=== PATIENT | male | born 1955 | race Hispanic/Latino ===

== ENCOUNTER 2020-06-19 10:53 | Emergency (ER) | payer OTHER ==
--- OUTSIDE RECORDS SUMMARY | 2020-06-19 11:06 | XMS REPORT | Continuity of Care Document ---
:1955 Author Organization 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 Family History Family Member Diagnosis Comments Start Date Stop Date Source Mother Family history of Type [facility] [place] 2 diabetes mellitus Physi cians with other circulatory complication Mother Family history of [facility] [place] diabetes mellitus [facility]ici ans Medications Ordered Filled Start Stop Current Ordering Indication Dosage Frequency Signature Comments Components Source Medication Medication Date Date Medication? Clinician (SIG) Name Name Finasteride Finasteride Yes 1 QD TAKE 1 Univers 5 MG Oral 5 MG Oral TABLET ity of Tablet Tablet DAILY. [place] [facility] Vital Signs Vital Name Observation Time Observation Value Comments Source Systolic blood 2020-02-14 115 mm[Hg] Location: Replaced by [facility] 13:08:00 Position: [place] [facility] Sitting Diastolic blood 2020-02-14 70 mm[Hg] Location: Replaced by [facility] 13:08:00 Position: [place] [facility] Sitting Body height 2020-02-14 69 [in_us] [facility] 13:08:00 [place] [facility] Weight 2020-02-14 190 [lb_av] [facility] 13:08:00 [place] [facility] Body mass index 2020-02-14 28.06 kg/m2 [place] o f (BMI) [Ratio] 13:08:00 [place] [facility] Body temperature 2020-02-14 97.6 [degF] [facility] 13:08:00 [place] [facility] Heart Rate 2020-02-14 70 /min [facility] 13:08:00 [place] [facility] O2 SAT 2020-02-14 99 % [facility] 13:08:00 [place] [facility] Systolic blood 2019-12-22 130 mm[Hg] Location: E; [facility] 09:23:00 Position: [place] Physician s Sitting Diastolic blood 2019-12-22 83 mm[Hg] Location: LLE; [facility] 09:23:00 Position: [place] [facility]ician s Sitting Body height 2019-12-22 69 [in_us] [facility] 09:23:00 [place] [facility] Weight 2019-12-22 195 [lb_av] [facility] 09:23:00 [place] [facility] Body mass index 2019-12-22 28.8 kg/m2 [place] [facility] f (BMI) [Ratio] 09:23:00 [place] [facility] Body temperature 2019-12-22 97.1 [degF] Method: [facility] 09:23:00 Temporal [place] [facility] Heart Rate 2019-12-22 60 /min [facility] 09:23:00 [place] [facility] Respiratory rate 2019-12-22 18 /min Quality: Normal [facility] 09:23:00 [place] [facility] O2 SAT 2019-12-22 98 % Source: [facility] 09:23:00 [place] [facility] Procedures Procedure Date / Time Performed Performing Clinician Steffanie e MRA Brain with and 2020-01-15 00:00:00 [facility] y [facility] without contrast Physicians [id number] MRI Brain w/wo 2019-12-22 00:00:00 [facility] contrast [id number] Physicians MRA Brain with 2019-12-22 00:00:00 [place] [facility] contrast [id number] Physicians MRA Neck [id number] 2019-12-22 00:00:00 [facility] o [facility] Physicians Plan of Care Planned Activity Planned Date Details Comments Source Future Appointment 2020-08-12 Nahun AMADOR [facility] 13:00:00 WEDNESDAY, Physicians Encounters Start End Encounter Admission Attending Care Care Encounter Source Date/Time Date/Time Type Type Clinicians Facility Department ID 2020-06-08 2020-06-08 Laboratory Lab, [facility] [id number] 17:50:36 18:10:36 Only Fam Pob I Health [id number] [place] [id number] Professio [id number] nal [address] 2020-04-15 2020-04-15 Laboratory Lab, [facility] [id number] 08:51:28 09:11:28 Only Fam Pob I Health [id number] [place] [id number] Professio [phone] nal 0[address] 2020-02-14 2020-02-14 Appointmen WEDNESDAYSUBHASH Neurology [id number] [facility] 13:00:00 13:00:00 t; WEDNESDAYMARJORIE [place] i ty of KIMBERLY, M.D. [facility] Physici ans 2019-12-22 2019-12-22 Appointmen SUBHASH PAINTING Neurology [id number] [facility] 09:30:00 09:30:00 t; DELFINO PAINTING [place] ity of SHAILA, M.D. [facility] Physici ans Results Test Test Test Results Result Source Description Time Comments Comments MR Brain w/wo 2020-01- EXAM: MRI BRAIN AND IAC [facility] and 03 WITH AND WITHOUT [place] IAC Complete 14:06:00 CONTRASTEXAM: MRA BRAIN Physicians [id number] WITH AND WITHOUT CONTRASTEXAM: MRA NECK WITHOUT CONTRASTDATE: 01/15/2020 13:41 CDTINDICATION: R42 DIZZINESS G50 TRIGEMINAL NEURALGIAADDITIONAL INFORMATION: 64-year-old male who has been experiencing discomfortand pain on the left side of their forehead and face for 2 months.COMPARISON: None.TECHNIQUE:* Multiplanar, multisequence MRI of the brain and internal auditory canalswith and without intravenous contrast.* Three-dimensional time of flight brain MR angiography of the brain isperformed within without contrast, and MIP reformatted images are presented inmultiple 3-D rotational projections.* Two-dimensional time of flight neck MR angiography of extracranial arterialsystem was performed and reformatted images are presented in 3-D maximumintensity rotational projections. 3-D hosv-su-npobog MR angiography centered atthe carotid bifurcations was included.* IV contrast: 20 mL Dotarem.FINDINGS:MRI brain and IACs:The trigeminal nerves appear symmetric and are normal in size and signalintensity. There is no pathologic enhancement of the trigeminal nerves or othercranial nerves on postcontrast imaging. No leptomeningeal enhancement isidentified. There is no evidence of abutment of either trigeminal nerve by avascular structure or other lesion. The mitali and remainder of the brainstemdemonstrate normal signal intensity.There is no restricted diffusion identified to indicate acute infarction orrecent ischemia. No pathologic extra-axial fluid collection is identified.There is no intraparenchymal susceptibility or signal changes to indicate thepresence of acute intracranial hemorrhage. There is no evidence of acutehydrocephalus. There is no vasogenic edema, midline shift, or evidence ofherniation. The basal cisterns and sulci are preserved. The major intracranialvascular flow voids are preserved, consistent with patency.A nonenhancing cystic structure in the posterior fossa which follows the CSFsignal intensity on all sequences, suppresses completely on T2 FLAIR imaging,and does not demonstrate any restricted diffusion is consistent with anarachnoid cyst. The midline left retrocerebellar component measures 2 x 1.6 x3.9 cm (AP by transverse by craniocaudal). There is extension into the regionsoverlying the bilateral cerebellar hemispheres, measuring up to 0.5 cm inthickness.There are scattered hyperintense foci seen within the supratentorialsubcortical and periventricular white matter on T2 FLAIR imaging which arenonspecific but most commonly associated with chronic microangiopathic changes.A mucus retention cyst is seen within the floor of the right maxillary sinus.Mucosal thickening is seen in the bilateral anterior ethmoid air cells.MRA brain:There is no evidence of vascular abutment or compression of the trigeminalnerves bilaterally. There is no evidence of flow-limiting stenosis, occlusion,aneurysmal dilatation, or vasculitis within the intracranial anterior posteriorcirculation.MRA neck:There is no evidence of flow-limiting stenosis, occlusion, aneurysmaldilatation, or vascular injury within the bilateral carotid or vertebralarteries.IMPRESSIO N:1. Normal, symmetric size and signal intensity of the bilateral trigeminalnerves without pathologic enhancement. No evidence of left trigeminal abutmentor compression by an adjacent vascular structure or other lesion. Of note, theentire course of the trigeminal nerves is not imaged on dedicated temporal boneimaging, and extracranial portions cannot be evaluated. MRI of the face can beconsidered.2. Scattered T2/FLAIR hyperintense foci seen within the supratentorial whitematter are nonspecific but commonly associated with chronic microangiopathicchanges.3. Normal MRA of the neck.--This report was dictated by a Clinical Case Manager/Fellow/Physician Automotive Glass Installer. Ihave personallyreviewed the images as well as the interpretation and agree with the findings.Read by: Audie Carrington MD Resident/Fellow/PhysicianAs sistant: Audie Carrington MDDictated Date/time: 01/16/20 08:23Electronically Signed by: Meghan Gary MD 01/15/2015:08FINAL REPORT MRA Brain with 2020-01- EXAM: MRI BRAIN AND IAC [facility] and without 03 WITH AND WITHOUT [place] contrast [id number] 13:55:00 CONTRASTEXAM: MRA BRAIN Physicians WITH AND WITHOUT CONTRASTEXAM: MRA NECK WITHOUT CONTRASTDATE: 01/15/2020 13:41 CDTINDICATION: R42 DIZZINESS G50 TRIGEMINAL NEURALGIAADDITIONAL INFORMATION: 64-year-old male who has been experiencing discomfortand pain on the left side of their forehead and face for 2 months.COMPARISON: None.TECHNIQUE:* Multiplanar, multisequence MRI of the brain and internal auditory canalswith and without intravenous contrast.* Three-dimensional time of flight brain MR angiography of the brain isperformed within without contrast, and MIP reformatted images are presented inmultiple 3-D rotational projections.* Two-dimensional time of flight neck MR angiography of extracranial arterialsystem was performed and reformatted images are presented in 3-D maximumintensity rotational projections. 3-D rdyz-cl-pjzblw MR angiography centered atthe carotid bifurcations was included.* IV contrast: 20 mL Dotarem.FINDINGS:MRI brain and IACs:The trigeminal nerves appear symmetric and are normal in size and signalintensity. There is no pathologic enhancement of the trigeminal nerves or othercranial nerves on postcontrast imaging. No leptomeningeal enhancement isidentified. There is no evidence of abutment of either trigeminal nerve by avascular structure or other lesion. The mitali and remainder of the brainstemdemonstrate normal signal intensity.There is no restricted diffusion identified to indicate acute infarction orrecent ischemia. No pathologic extra-axial fluid collection is identified.There is no intraparenchymal susceptibility or signal changes to indicate thepresence of acute intracranial hemorrhage. There is no evidence of acutehydrocephalus. There is no vasogenic edema, midline shift, or evidence ofherniation. The basal cisterns and sulci are preserved. The major intracranialvascular flow voids are preserved, consistent with patency.A nonenhancing cystic structure in the posterior fossa which follows the CSFsignal intensity on all sequences, suppresses completely on T2 FLAIR imaging,and does not demonstrate any restricted diffusion is consistent with anarachnoid cyst. The midline left retrocerebellar component measures 2 x 1.6 x3.9 cm (AP by transverse by craniocaudal). There is extension into the regionsoverlying the bilateral cerebellar hemispheres, measuring up to 0.5 cm inthickness.There are scattered hyperintense foci seen within the supratentorialsubcortical and periventricular white matter on T2 FLAIR imaging which arenonspecific but most commonly associated with chronic microangiopathic changes.A mucus retention cyst is seen within the floor of the right maxillary sinus.Mucosal thickening is seen in the bilateral anterior ethmoid air cells.MRA brain:There is no evidence of vascular abutment or compression of the trigeminalnerves bilaterally. There is no evidence of flow-limiting stenosis, occlusion,aneurysmal dilatation, or vasculitis within the intracranial anterior posteriorcirculation.MRA neck:There is no evidence of flow-limiting stenosis, occlusion, aneurysmaldilatation, or vascular injury within the bilateral carotid or vertebralarteries.IMPRESSIO N:1. Normal, symmetric size and signal intensity of the bilateral trigeminalnerves without pathologic enhancement. No evidence of left trigeminal abutmentor compression by an adjacent vascular structure or other lesion. Of note, theentire course of the trigeminal nerves is not imaged on dedicated temporal boneimaging, and extracranial portions cannot be evaluated. MRI of the face can beconsidered.2. Scattered T2/FLAIR hyperintense foci seen within the supratentorial whitematter are nonspecific but commonly associated with chronic microangiopathicchanges.3. Normal MRA of the neck.--This report was dictated by a Clinical Case Manager/Fellow/Physician Automotive Glass Installer. Caty personallyreviewed the images as well as the interpretation and agree with the findings.Read by: Audie Carrington MD Resident/Fellow/PhysicianAs sistant: Audie Carrington MDDictated Date/time: 01/16/20 08:23Electronically Signed by: Meghan Gary MD 01/15/2015:08FINAL REPORT MRA Neck 2020-01- EXAM: MRI BRAIN AND IAC [facility] without 03 WITH AND WITHOUT [place] contrast [id number] 13:42:00 CONTRASTEXAM: MRA BRAIN Physicians WITH AND WITHOUT CONTRASTEXAM: MRA NECK WITHOUT CONTRASTDATE: 01/15/2020 13:41 CDTINDICATION: R42 DIZZINESS G50 TRIGEMINAL NEURALGIAADDITIONAL INFORMATION: 64-year-old male who has been experiencing discomfortand pain on the left side of their forehead and face for 2 months.COMPARISON: None.TECHNIQUE:* Multiplanar, multisequence MRI of the brain and internal auditory canalswith and without intravenous contrast.* Three-dimensional time of flight brain MR angiography of the brain isperformed within without contrast, and MIP reformatted images are presented inmultiple 3-D rotational projections.* Two-dimensional time of flight neck MR angiography of extracranial arterialsystem was performed and reformatted images are presented in 3-D maximumintensity rotational projections. 3-D hmkl-zv-ciwhic MR angiography centered atthe carotid bifurcations was included.* IV contrast: 20 mL Dotarem.FINDINGS:MRI brain and IACs:The trigeminal nerves appear symmetric and are normal in size and signalintensity. There is no pathologic enhancement of the trigeminal nerves or othercranial nerves on postcontrast imaging. No leptomeningeal enhancement isidentified. There is no evidence of abutment of either trigeminal nerve by avascular structure or other lesion. The mitali and remainder of the brainstemdemonstrate normal signal intensity.There is no restricted diffusion identified to indicate acute infarction orrecent ischemia. No pathologic extra-axial fluid collection is identified.There is no intraparenchymal susceptibility or signal changes to indicate thepresence of acute intracranial hemorrhage. There is no evidence of acutehydrocephalus. There is no vasogenic edema, midline shift, or evidence ofherniation. The basal cisterns and sulci are preserved. The major intracranialvascular flow voids are preserved, consistent with patency.A nonenhancing cystic structure in the posterior fossa which follows the CSFsignal intensity on all sequences, suppresses completely on T2 FLAIR imaging,and does not demonstrate any restricted diffusion is consistent with anarachnoid cyst. The midline left retrocerebellar component measures 2 x 1.6 x3.9 cm (AP by transverse by craniocaudal). There is extension into the regionsoverlying the bilateral cerebellar hemispheres, measuring up to 0.5 cm inthickness.There are scattered hyperintense foci seen within the supratentorialsubcortical and periventricular white matter on T2 FLAIR imaging which arenonspecific but most commonly associated with chronic microangiopathic changes.A mucus retention cyst is seen within the floor of the right maxillary sinus.Mucosal thickening is seen in the bilateral anterior ethmoid air cells.MRA brain:There is no evidence of vascular abutment or compression of the trigeminalnerves bilaterally. There is no evidence of flow-limiting stenosis, occlusion,aneurysmal dilatation, or vasculitis within the intracranial anterior posteriorcirculation.MRA neck:There is no evidence of flow-limiting stenosis, occlusion, aneurysmaldilatation, or vascular injury within the bilateral carotid or vertebralarteries.IMPRESSIO N:1. Normal, symmetric size and signal intensity of the bilateral trigeminalnerves without pathologic enhancement. No evidence of left trigeminal abutmentor compression by an adjacent vascular structure or other lesion. Of note, theentire course of the trigeminal nerves is not imaged on dedicated temporal boneimaging, and extracranial portions cannot be evaluated. MRI of the face can beconsidered.2. Scattered T2/FLAIR hyperintense foci seen within the supratentorial whitematter are nonspecific but commonly associated with chronic microangiopathicchanges.3. Normal MRA of the neck.--This report was dictated by a Clinical Case Manager/Fellow/Physician Automotive Glass Installer. Ihave personallyreviewed the images as well as the interpretation and agree with the findings.Read by: Audie Carrington MD Resident/Fellow/PhysicianAs sistant: Audie Carrington MDDictated Date/time: 01/16/20 08:23Electronically Signed by: Meghan Gary MD 01/15/2015:08FINAL REPORT
--- OUTSIDE RECORDS SUMMARY | 2020-06-19 11:06 | XMS REPORT | Summary of Care ---
:1955 Author Organization [facility] Address [address] [place] [id number] Care Team Providers Name Role Phone Shaun Weinstein Primary Care Provider Reason for Visit Reason Comments LAB covid Encounter Details Date Type Department Care Team Description 06/08/2020 Laboratory Only [facility] Ghislaine Blandon, CLOTH TEARER [address] [place] [address] Exposure to Medicine - [facility], Adc Fam Pob I SARS-associated [address] [facility] coronaviru s ([address] Dx) [place] [address] Allergies Not on Filedocumented as of this encounter (statuses as of 06/08/2020) Medications Not on filedocumented as of this encounter (statuses as of 06/08/2020) Active Problems Not on filedocumented as of this encounter (statuses as of 06/08/2020) Social History Tobacco Use Types Packs/Day Years Used Date Never Assessed Sex Assigned at Date Recorded Not on file COVID-19 Exposure Response Date Recorded In the last month, have you been in contact with No / Unsure 06/08/2020 5:52 PM [facility] someone who was confirmed or suspected to have Coronavirus / COVID-19? documented as of this encounter Last Filed Vital Signs Not on filedocumented in this encounter Nursing Notes Toma Dennis RN - 06/08/2020 6:00 PM CSTNishant Samaniego is a 65 year old male here for COVID Screening with a Nasopharyngeal Swab All droplet and contact precautions taken with appropriate PPE worn while interacting with patient. ? Goggles ? N95 Mask ? Gloves ? Gown RR 17 Pulse Ox 97% Patient educated on plan of care for visit, swabbing technique, risks and benefits of test and length of time to receive results. Verbal consent obtained to perform test. CDC Fact Sheet for Patients nCoV Diagnostic Panel dated 08/27/2019 and Factsheet What to Do if Sick with COVID 19 08/07/19 provided. Patient swabbed per appropriate nasopharyngeal technique, and patient tolerated well. Patient was discharged from the testing clinic in stable condition. Toma Dennis RN 06/08/2020 5:53 PM documented in this encounter Plan of Treatment Name Type Priority Associated Diagnoses Order S chedule COVID-19 (MOLECULAR LAB Routine Exposure to Expected : 06/08/2020, TESTING SARS-associated Expires: 021 NUCLEIC ACID coronavirus AMPLIFICATION) documented as of this encounter Results Not on filedocumented in this encounter Visit Diagnoses Diagnosis Exposure to SARS-associated coronavirus - Primary documented in this encounter Additional Health Concerns Infection Onset Date Last Indicated Resolved Time COVID-19 Rule Out 06/08/2020 06/08/2020 documented as of this encounter Insurance Payer Benefit Plan Subscriber ID Effective Phone Address Typ e / Group Dates [employer]ET[employer] - AET[employer] [id number] 2019-[address] Medic are Adv [place]NAGED MEDICARE ADV [place] [id number] [place] [address] documented as of this encounter
--- OUTSIDE RECORDS SUMMARY | 2020-06-19 11:06 | XMS REPORT | Summary of Care ---
:1955 Author Organization [facility] Address [address] [place] [id number] Care Team Providers Name Role Phone Shaun Weinstein Primary Care Provider Reason for Visit Reason Comments LAB Encounter Details Date Type Department Care Team Description 04/15/[address] [facility] Family Fawad Hoyos, FRONT OFFICE DIRECTOR [address] [place] [id number] Contact with or Medicine - [facility], Ad[facility] Fam Pob I exposure to viral [address] [place] [address] disease (P rimary Dx) [place] [address] Allergies Not on Filedocumented as of this encounter (statuses as of 04/15/2020) Medications Not on filedocumented as of this encounter (statuses as of 04/15/2020) Active Problems Not on filedocumented as of this encounter (statuses as of 04/15/2020) Social History Tobacco Use Types Packs/Day Years Used Date Never Assessed Sex Assigned at Date Recorded Not on file documented as of this encounter Last Filed Vital Signs Vital Sign Reading Time Taken Comments Blood Pressure - - Pulse 68 04/15/2020 7:00 AM RESOURCE PARAPROFESSIONAL Temperature - - Respiratory Rate 16 04/15/2020 7:00 AM RESOURCE PARAPROFESSIONAL Oxygen Saturation 97% 04/15/2020 7:00 AM RESOURCE PARAPROFESSIONAL Inhaled Oxygen Concentration - - Weight - - Height - - Body Mass Index - - documented in this encounter Nursing Notes Daniela Jackman MA - 04/15/2020 8:40 AM CSTNishant Samaniego is a 65 year old male here for a Rule Out Covid-19 Nasopharyngeal Swab. Patient educated on plan of care for visit, swabbing technique, risks and benefits of test and length of time to receive results. Verbal consent obtained to perform test. CDC Fact Sheet for Patients provided to patient. All droplet and contact precautions taken with appropriate PPE worn while interacting with patient. - Goggles - N95 Mask - Gloves - Gown RR=16 % O2 Sat=97 Patient swabbed using appropriate nasopharyngeal technique, and patient tolerated well. Patient was discharged in stable condition. Daniela Jackman MA 04/15/2020 8:57 AM URCE PARAPROFESSIONAL documented in this encounter Plan of Treatment Name Type Priority Associated Diagnoses Order S chedule COVID-19 ([facility] Routine Contact with or exposure Expected: 04/15/2020, TESTING) to viral disease Expires: Health Maintenance Due Date Last Done Comments HEPATITIS C (HCV) SCREEN 1955 Depression Screening 1966 DTaP,Tdap,and Td Vaccines (1 - Tdap) 1973 COLON CANCER SCREENING ANNUAL FIT/FOBT 02/23/2004 COLON CANCER SCREENING FIT DNA EVERY 3 YEARS 02/23/2004 COLON CANCER SCREENING SIGMOIDOSCOPY EVERY 5 YEARS 02/23/2004 COLONOSCOPY 02/23/2004 Colorectal Cancer Screening 02/23/2004 Zoster Recombinant Vaccine (SHINGRIX) (1 of 2) 02/23/2004 Medicare Wellness Visit 2019 PNEUMOCOCCAL VACCINES 65+ (1 of 1 - PPSV23) 2019 INFLUENZA VACCINE (#1) 2020 documented as of this encounter Results Not on filedocumented in this encounter Visit Diagnoses Diagnosis Contact with or exposure to viral diseas e - Primary Contact with or exposure to other viral diseases documented in this encounter Additional Health Concerns Infection Onset Date Last Indicated Resolved Time COVID-19 Rule Out 04/15/2020 04/15/2020 documented as of this encounter Insurance Payer Benefit Plan Subscriber ID Effective Phone Address Typ e / Group Dates AETNA - AETNA [id number] 2019-Prese P O BOX Medic are Adv MANAGED MEDICARE ADV nt [id number] [place] [address] documented as of this encounter
[2020-06-19 14:19] LABS: Absolute Lymphocytes (CBC) 0.3 K/uL (0.7-4.9); Basophils % 0.1 % (0-1.3); Hematocrit 42.4 % (39.6-49.0); Lymphocytes % 10.4 % (15.3-44.8); MPV 7.5 fL (7.6-11.3); RBC Red Blood Cell Count 5.38 M/uL (4.33-5.43)
[2020-06-19 14:24] LABS: Protime INR 1.36
[2020-06-19 14:39] LABS: ALT/SGPT 127 U/L (12-78); AST/SGOT 92 U/L (15-37); Albumin 3.1 g/dL (3.4-5.0); Alkaline Phosphatase 112 U/L (45-117); BUN Blood Urea Nitrogen 19 mg/dL (7-18); Bicarbonate 26 mmol/L (21-32); Bilirubin Direct 0.1 mg/dL (0-0.2); Bilirubin Total 0.5 mg/dL (0.2-1.0); Glucose Level 234 mg/dL (74-106); Magnesium 2.4 mg/dL (1.8-2.4); NT PRO-BNP 111 pg/mL (<125); Potassium 4.2 mmol/L (3.5-5.1); Protein, Total 7.6 g/dL (6.4-8.2); Sodium Level 134 mmol/L (136-145); Troponin (Emerg Dept Use Only) < 0.02 ng/mL (0.0-0.045)
--- NOTE | 2020-06-19 14:57 | RAD REPORT ---
EXAM DESCRIPTION: CT - Chest For Pe Angio - 06/19/2020 2:18 pm CLINICAL HISTORY: Chest pain. SOB COMPARISON: No comparisons TECHNIQUE: CT angiogram of the pulmonary arteries was performed with MIP. All CT scans are performed using dose optimization technique as appropriate and may include automated exposure control or mA/KV adjustment according to patient size. FINDINGS: No evidence of pulmonary thromboembolism. No acute aortic finding demonstrated. Moderate ground-glass opacity seen in the periphery of both lung ramirez greatest in the bases compati ble with viral bronchitis. No significant pericardial or pleural fluid. No concerning bony finding. IMPRESSION: No evidence of pulmonary thromboembolism. Moderate ground-glass opacities bilaterally compatible with COVID-19.
--- NOTE | 2020-06-19 15:10 | RAD REPORT ---
EXAM DESCRIPTION: RAD - Chest Single View - 06/19/2020 2:15 pm CLINICAL HISTORY: SOB Chest pain. COMPARISON: No comparisons FINDINGS: Portable technique limits examination quality. Mild interstitial prominence bilaterally suggests viral pneumonitis/ bronchitis. The heart is normal in size. No displaced fractures.
--- NOTE | 2020-06-19 15:21 | ER ---
Nurse's Notes [facility] Name: Nishant Samaniego Age: 65 yrs Sex: Male : 1955 Arrival Date: 06/19/2020 Time: 10:56 Bed 19 Private MD: Diagnosis: Coronavirus infection, unspecified;Pneumonia due to other specified infectious organisms Presentation: 06/19 11:04 Chief complaint: Patient states: back was hurting real bad yesterday, Dr. Js schulz5 prescribed some medications, feels slightly better today, Pt has "blood clots in lungs", back pain has subsided but Dr. Weinstein wanted to get a CT done today. Coronavirus screen: Client denies travel out of the [place] in the last 14 days. fever, Client presents with at least one sign or symptom that may indicate coronavirus-19. Standard/surgical mask placed on the client. Coronavirus screen: headache. Ebola Screen: Patient negative for fever greater than or equal to 101.5 degrees Fahrenheit, and additional compatible Ebola Virus Disease symptoms Patient denies exposure to infectious person. Patient denies travel to an Ebola-affected area in the 21 days before illness onset. No symptoms or risks identified at this time. Initial Sepsis Screen: Does the patient meet any 2 criteria? RR > 20 per min. No. Patient's initial sepsis screen is negative. Does the patient have a suspected source of infection? No. Patient's initial sepsis screen is negative. Risk Assessment: Do you want to hurt yourself or someone else? Patient reports no desire to harm self or others. Onset of symptoms was June 18, 2020. 11:04 Method Of Arrival: Ambulatory dm5 11:04 Acuity: JOSEFINA 3 dm5 Historical: - Allergies: 11:07 No Known Allergies; dm5 - Home Meds: 15:27 Dexamethasone Oral [Active]; Zithromax Z-Asim Oral [Active]; vg1 15:27 Pepcid Oral [Active]; Xarelto oral oral [Active]; vg1 Screenin:05 Abuse screen: Denies threats or abuse. Nutritional screening: No deficits noted. vg1 Tuberculosis screening: No symptoms or risk factors identified. Fall Risk None identified. Assessment: 13:04 General: Appears in no apparent distress. comfortable, Behavior is calm, cooperative. vg1 Pain: Complains of pain in left scapular area Pain currently is 2 out of 10 on a pain scale. Neuro: Level of Consciousness is awake, alert, obeys commands, Oriented to person, place, time, situation. Cardiovascular: Patient's skin is warm and dry. Respiratory: Airway is patent Respiratory effort is even, unlabored, Respiratory pattern is regular, symmetrical, Breath sounds are clear bilaterally. Denies cough, shortness of breath. GI: No signs and/or symptoms were reported involving the gastrointestinal system. : No signs and/or symptoms were reported regarding the genitourinary system. EENT: No signs and/or symptoms were reported regarding the EENT system. Derm: Skin is intact, is healthy with good turgor. Musculoskeletal: Circulation, motion, and sensation intact. 14:00 Reassessment: Patient appears in no apparent distress at this time. Patient is alert, vg1 oriented x 3, equal unlabored respirations, skin warm/dry/pink. Patient denies pain at this time. 15:16 Reassessment: Patient appears in no apparent distress at this time. Patient is alert, vg1 oriented x 3, equal unlabored respirations, skin warm/dry/pink. Patient denies pain at this time. Vital Signs: 11:04 BP 118 / 73; Pulse 74; Resp 22; Temp 97.8; Pulse Ox 97% on R/A; Weight 88.9 kg; Height dm5 5 ft. 9 in. (175.26 cm); Pain 0/10; 13:05 BP 130 / 88; Pulse 80; Resp 22; Pulse Ox 97% on R/A; vg1 15:00 BP 133 / 93; Pulse 83; Resp 18; Pulse Ox 96% on R/A; vg1 11:04 Body Mass Index 28.94 (88.90 kg, 175.26 cm) dm5 ED Course: 10:56 Patient arrived in ED. ds1 11:07 Triage completed. dm5 12:48 Ina Zaman, RN is Primary Nurse. vg1 13:05 Arm band placed on. vg1 13:05 Patient has correct armband on for positive identification. Bed in low position. Call vg1 light in reach. 13:13 Erik Ponce PA is PHCP. cp 13:13 Hernan Gunn MD is Attending Physician. cp 14:04 Initial lab(s) drawn, by la, sent to lab. Inserted saline lock: 20 gauge in right vg1 antecubital area, using aseptic technique. Blood collected. 14:09 Xray at bedside. vg1 14:16 XRAY Chest (1 view) In Process Unspecified. EDMS 14:18 CT Chest For PE Angio In Process Unspecified. EDMS 14:38 EKG done, by ED staff, reviewed by Erik GARCIA. dh3 15:12 Hep drawn by la and sent to lab. dh3 15:41 No provider procedures requiring assistance completed. IV discontinued, intact, vg1 bleeding controlled, No redness/swelling at site. Pressure dressing applied. Administered Medications: No medications were administered Outcome: 15:20 Discharge ordered by . kassidy 15:41 Discharged to home ambulatory. vg1 15:41 Condition: stable 15:41 Discharge instructions given to patient, Instructed on discharge instructions, follow up and referral plans. medication usage, Demonstrated understanding of instructions, follow-up care, medications, Prescriptions given X 1. 15:42 Patient left the ED. vg1 Signatures: Dispatcher [employer] EDNY Nolvia Adame, RN RN dm5 Amina Briceno ds1 Erik Ponce PA PA cp Herrera, Deanna 3 Ina Zaman, RN RN vg1
--- NOTE | 2020-06-19 15:21 | EDPHYS ---
Physician Documentation [facility] Name: Nishant Samaniego Age: 65 yrs Sex: Male : 1955 Arrival Date: 06/19/2020 Time: 10:56 Bed 19 Private MD: ED Physician Hernan Gunn HPI: 06/19 13:45 This 65 yrs old Male presents to ER via Ambulatory with complaints of Covid+ cp Sent by Dr Weinstein for CT. 13:45 The patient or guardian reports cough, that is intermittent. cp 13:45 Associated signs and symptoms: Pertinent positives: upper back pain, Pertinent cp negatives: chest pain, fever. 13:45 Patient reports he was referred to ED by DR Weinstein for CT scan of chest to r/o cp pulmonary embolism. Patient reports he was diagnosed with COVID-19 and started having upper back pain. Patient reports he is currently taking antibiotic, oral steroids and a blood thinner since yesterday. Patient reports back pain improved today. Historical: - Allergies: 11:07 No Known Allergies; dm5 - Home Meds: 15:27 Dexamethasone Oral [Active]; Zithromax Z-Asim Oral [Active]; vg1 15:27 Pepcid Oral [Active]; Xarelto oral oral [Active]; vg1 ROS: 13:55 Constitutional: Negative for body aches, chills, fever. cp 13:55 Eyes: Negative for injury, pain, redness, and discharge. cp 13:55 Cardiovascular: Negative for chest pain, edema, palpitations. 13:55 Respiratory: Positive for cough, shortness of breath, on exertion. Negative for wheezing. 13:55 Abdomen/GI: Negative for abdominal pain, nausea, vomiting, and diarrhea. 13:55 Back: Positive for pain at rest. 13:55 Neuro: Negative for altered mental status, headache, syncope, weakness. 13:55 All other systems are negative. Exam: 14:00 Constitutional: The patient appears in no acute distress, alert, awake, comfortable, cp non-diaphoretic, non-toxic, well developed, well nourished. 14:00 Head/Face: Normocephalic, atraumatic. cp 14:00 Eyes: Periorbital structures: appear normal, Conjunctiva: normal, no exudate, no injection, Sclera: no appreciated abnormality, Lids and lashes: appear normal, bilaterally. 14:00 ENT: External ear(s): are unremarkable, Nose: is normal, Mouth: Lips: moist, Oral mucosa: moist, Posterior pharynx: is normal, airway is patent, no erythema, no exudate. 14:00 Chest/axilla: Inspection: normal, Palpation: is normal, no crepitus, no tenderness. 14:00 Cardiovascular: Rate: normal, Rhythm: regular, Edema: is not appreciated, JVD: is not appreciated. 14:00 Respiratory: the patient does not display signs of respiratory distress, Respirations: normal, no use of accessory muscles, no retractions, labored breathing, is not present, Breath sounds: bronchial sounds, that are mild, are heard diffusely, decreased breath sounds, are not appreciated, wheezing: is not appreciated. 14:00 Abdomen/GI: Inspection: abdomen appears normal, Palpation: abdomen is soft and non-tender, in all quadrants. 14:00 Back: pain, that is very mild, of the left scapular area and right scapular area, ROM is normal. 14:00 Skin: no rash present. 14:00 Neuro: Orientation: to person, place \T\ time. Mentation: is normal, Motor: moves all fours, strength is normal. 14:45 ECG was reviewed by the Attending Physician. Vital Signs: 11:04 BP 118 / 73; Pulse 74; Resp 22; Temp 97.8; Pulse Ox 97% on R/A; Weight 88.9 kg; Height dm5 5 ft. 9 in. (175.26 cm); Pain 0/10; 13:05 BP 130 / 88; Pulse 80; Resp 22; Pulse Ox 97% on R/A; vg1 15:00 BP 133 / 93; Pulse 83; Resp 18; Pulse Ox 96% on R/A; vg1 11:04 Body Mass Index 28.94 (88.90 kg, 175.26 cm) dm5 MDM: 13:20 Patient medically screened. cp 15:20 Data reviewed: vital signs, nurses notes, lab test result(s), EKG, radiologic studies, cp CT scan, plain films, and as a result, I will discharge patient. Test interpretation: by ED physician or midlevel provider: ECG. Counseling: I had a detailed discussion with the patient and/or guardian regarding: the historical points, exam findings, and any diagnostic results supporting the discharge/admit diagnosis, lab results, radiology results, the need for outpatient follow up, a family practitioner, to return to the emergency department if symptoms worsen or persist or if there are any questions or concerns that arise at home. 06/19 13:44 Order name: Basic Metabolic Panel cp 06/19 13:44 Order name: CBC with Diff cp 06/19 13:44 Order name: LFT's; Complete Time: 14:45 cp 06/19 14:45 Interpretation: Normal except: AST 92; ALT 127; ALB 3.1; GLOB 4.5; A/G 0.7. cp 06/19 13:44 Order name: Magnesium; Complete Time: 14:45 cp 06/19 13:44 Order name: NT PRO-BNP; Complete Time: 14:45 cp 06/19 13:44 Order name: PT-INR; Complete Time: 14:45 cp 06/19 13:44 Order name: Troponin (emerg Dept Use Only); Complete Time: 14:45 cp 06/19 13:44 Order name: XRAY Chest (1 view); Complete Time: 15:19 cp 06/19 13:44 Order name: EKG; Complete Time: 13:45 cp 06/19 13:44 Order name: Cardiac monitoring; Complete Time: 14:45 cp 06/19 13:45 Order name: Basic Metabolic Panel; Complete Time: 14:45 EDMS 06/19 15:10 Interpretation: Normal except: NA 134; GLUC 234; BUN 19; GFR 87. cp 06/19 13:45 Order name: CBC with Automated Diff; Complete Time: 14:45 EDMS 06/19 13:56 Order name: CT Chest For PE Angio; Complete Time: 15:09 cp 06/19 15:10 Interpretation: Report reviewed. cp 06/19 14:47 Order name: CREATININE WHOLE BLOOD; Complete Time: 15:09 EDMS 06/19 13:44 Order name: EKG - Nurse/Tech; Complete Time: 14:45 cp 06/19 13:44 Order name: IV Saline Lock; Complete Time: 14:03 cp 06/19 13:44 Order name: Labs collected and sent; Complete Time: 14:04 cp 06/19 13:44 Order name: O2 Per Protocol; Complete Time: 14:04 cp 06/19 13:44 Order name: O2 Sat Monitoring; Complete Time: 14:04 cp EC:45 Rate is 74 beats/min. Rhythm is regular. OK interval is normal. QRS interval is normal. cp QT interval is normal. T waves are Inverted in lead aVR. Interpreted by me. Reviewed by me. Administered Medications: No medications were administered Disposition: 06/20 07:04 Co-signature as Attending Physician, Hernan Gunn MD I agree with the assessment and kdr plan of care. Disposition: 06/19/20 15:20 Discharged to Home. Impression: Coronavirus infection, unspecified, Pneumonia due to other specified infectious organisms. - Condition is Stable. - Discharge Instructions: Community-Acquired Pneumonia, Adult, COVID-19. - Prescriptions for Albuterol Sulfate 90 mcg/actuation - inhale 1-2 puff by INHALATION route every 4-6 hours; 1 Inhaler. - Medication Reconciliation Form, Thank You Letter, Antibiotic Education, Prescription Opioid Use form. - Follow up: Private Physician; When: 1 - 2 days; Reason: Recheck today's complaints. - Problem is new. - Symptoms have improved. Signatures: Dispatcher [employer] EDMS Nolvia Adame RN RN dm5 Hernan Gunn MD MD kdr Erik Pocne PA PA Ina Metzger RN RN vg1 Corrections: (The following items were deleted from the chart) 06/19 15:42 15:20 06/19/2020 15:20 Discharged to Home. Impression: Coronavirus infection, vg1 unspecified; Pneumonia due to other specified infectious organisms. Condition is Stable. Forms are Medication Reconciliation Form, Thank You Letter, Antibiotic Education, Prescription Opioid Use. Follow up: Private Physician; When: 1 - 2 days; Reason: Recheck today's complaints. Problem is new. Symptoms have improved. cp 06/20 14:04 09:13 Constitutional: Negative for fever, cp cp 14:06/19 15:40 Data reviewed: vital signs, nurses notes, lab test result(s), EKG, cp radiologic studies, CT scan, plain films, and as a result, I will discharge patient, cp 06/20 14:18 06/19 15:40 Test interpretation: by ED physician or midlevel provider: ECG, cp cp 06/20 14:18 06/19 15:40 Counseling: I had a detailed discussion with the patient and/or guardian cp regarding: the historical points, exam findings, and any diagnostic results supporting the discharge/admit diagnosis, lab results, radiology results, the need for outpatient follow up, a family practitioner, to return to the emergency department if symptoms worsen or persist or if there are any questions or concerns that arise at home, cp
[2020-06-19 16:31] VITALS: TEMP 97.8
[2020-06-19 16:34] VITALS: BP 133/93; O2SAT 96
== END 2020-06-19 15:42 | disposition home or self-care (01) ==
LOC: ER 10:53
DX: U07.1 COVID-19 (principal); J12.82 Pneumonia due to coronavirus disease 2019; Z79.01 Long term (current) use of anticoagulants
CPT/HCPCS: 93005; 85025; 80048; 36415; 83735; 85610; 82565; 80076; 84484; 83880; 71275; 71045; 99284; Q9967

== ENCOUNTER 2023-04-12 07:08 | Day surgery (SDC) | payer OTHER ==
[2023-04-09 15:43] LABS: Absolute Lymphocytes (CBC) 1.6 K/uL (0.7-4.9); Hematocrit 42.8 % (39.6-49.0); Lymphocytes % 25.8 % (15.3-44.8); MCV 79.7 fL (80-100); MPV 7.1 fL (7.6-11.3); Platelets 355 thou/uL (152-406); RBC Red Blood Cell Count 5.37 M/uL (4.33-5.43)
[2023-04-09 15:52] LABS: Potassium 4.1 mEq/L (3.5-5.1)
--- NOTE | 2023-04-09 16:53 | RAD REPORT ---
EXAM DESCRIPTION: Elias Mars (2 Views)04/09/2023 3:30 pm CLINICAL HISTORY: Preop for inguinal hernia repair COMPARISON: December 2022 FINDINGS: The lungs appear clear of acute infiltrate. The heart is normal size IMPRESSION: No acute abnormalities displayed
[2023-04-12] MEDS ORDERED: Ringers Lactate 1,000 ML IV ONE ×2 (08:00→09:50)
[2023-04-12] MEDS ORDERED: BUPIVACAINE 0.5% PF 10 ML VIAL ONE ×2 (08:06→09:42)
[2023-04-12] MEDS ORDERED: FENTANYL CITR 100 MCG/2 ML ONE (08:49)
[2023-04-12] MEDS ORDERED: LIDOCAINE 2% MPF 5 ML VIAL ONE (08:49)
[2023-04-12] MEDS ORDERED: propofoL 200 MG/20 ML VIAL IV ONE (08:49)
[2023-04-12] MEDS ORDERED: dexAMETHasone 10 MG/ML VIAL ONE ×2 (08:49→09:41)
[2023-04-12] MEDS ORDERED: ONDANSETRON 4 MG/2 ML VIAL ONE ×2 (08:50→10:54)
[2023-04-12] MEDS ORDERED: KETOROLAC 30 MG/ML INJ ONE (08:50)
[2023-04-12] MEDS ORDERED: CEFAZOLIN SODIUM 1 GM/VIAL ONE (08:52)
[2023-04-12] MEDS ORDERED: ROCURONIUM 50 MG/5 ML VIAL IV ONE ×2 (08:56→10:08)
[2023-04-12] MEDS ORDERED: EPINEPHrine 1 MG/10 ML SYR ONE (09:42)
[2023-04-12] MEDS ORDERED: BUPIVACAINE 0.25% PF 10 ML VIAL ONE (09:42)
[2023-04-12] MEDS ORDERED: GLYCOPYRROLATE 0.2 MG/ML SYR ONE (09:48)
--- NOTE | 2023-04-12 10:03 | P.BOP ---
Preoperative diagnosis: bilateral tender inguinal hernias Postoperative diagnosis: same Primary procedure: Laparoscopic repair of bilateral inguinal hernias with mesh Service Team Leader: Sasha Diaz) Estimated blood loss: <10cc Specimen: none Findings: as above Anesthesia: General Complications: None Implants: medium 3D mesh right and left Transferred to: Recovery Room Condition: Good
[2023-04-12] MEDS ORDERED: SUGAMMADEX SODIUM 200 MG/2 ML VIAL IV ONE (10:09)
[2023-04-12] MEDS ORDERED: Mastisol Adhesive Liq ONE (10:11)
[2023-04-12 10:39] VITALS: O2SAT 100
[2023-04-12 10:58] VITALS: TEMP 97
[2023-04-12] MEDS ORDERED: HYDROCODONE/APAP 5/325 MG TAB ONE (11:31)
[2023-04-12 14:46] VITALS: BP 127/52
--- NOTE | 2023-04-12 23:23 | OP ---
Date of Procedure: 04/12/2023 Surgeon: Nuno Velazquez MD Astronomy Teacher: DEE Clinton. Preoperative Diagnosis: Bilateral tender inguinal hernias. Postoperative Diagnosis: Bilateral tender inguinal hernias. Procedure: Laparoscopic repair of bilateral tender inguinal hernia with mesh. Estimated Blood Loss: Less than 10 mL. Specimen: None. Finding: Bilateral inguinal hernias. Anesthesia: General. Complications: None. Implant: Median 3D mesh right and left. Indications: This is a case of a 68-year-old, who comes with above diagnosis. Fully explained the b enefits, alternatives, and risks of laparoscopic possible open repair of right and left inguinal anastacia ias with mesh which include, but not limited to infection, bleeding, damage to adjacent structures, a nesthesia complication, chronic pain, KS, and even . He also understands the chance of recurren ce. Understand we are going to use mesh in that region most likely, and the pros and cons of mesh we re explained to the patient. He signed a consent. The patient was brought to the operating room, pl aced supine position. Anesthesia was induced without complication. A time-out was called. Abdomen and bilateral inguinal region was prepped and draped in sterile fashion. Local anesthesia was applie d followed by sharp incision of the skin in the infraumbilical region. Incision was carried down unt il we find the anterior rectus sheath on the right side. An incision was made in that region. The m uscle retracted laterally to expose the posterior rectus sheath. At that moment, we proceeded to cre ate the extraperitoneal space with gentle blunt dissection. A balloon tip trocar was placed in that area, directed to the pubis symphysis and inflated under direct visualization with the camera. Then, the balloon was deflated, removed, and we insufflated the area. Once we had the extraperitoneal spa ce developed, I put a 5 mm trocar just above the pubic symphysis and another jail between the firs t and second one. The preperitoneal space was gently developed by exposing the inferior epigastric v essels, keeping them anterior. Martin ligament was dissected laterally to the junction with the juan c veins. The dissection continued inferiorly to the iliopubic tract, avoiding damage to the femoral branch of the genitofemoral nerve and lateral femoral cutaneous nerve. The cord structures were care fully skeletonized. The hernia sac was identified and reduced by gentle traction after we mobilized it from the cord structures. The cord structures were protected at all times. At that moment, I pro ceeded to do the same thing on the left side. Once again, same steps up to this point. When we had both sides clear and when we proceeded to introduce a 3D mesh, we did the left side first. We put a 3D mesh inside the working space, making sure we cover direct and indirect spaces. Then, the mesh wa s secured in place with SorbaFix fixation device lateral and superior to the iliopubic tract and infe rior medial to the Martin ligament. Once we finished that placement, we went to the opposite side, t he right side. Once again, we put the same mesh but on the right side and then secured using same te chnique. After ensuring adequate hemostasis, I proceeded to deflate the area under direct visualizat ion while we keep the mesh in place and making sure the hernia sac is still reduced back into the per itoneal cavity. Once we deflated the area, we proceeded to close the anterior rectus sheath with #1 Vicryl. The skin with 3-0 chromic and the subcutaneous tissue also with 3-0 chromic. The patient to lerated the procedure well. Steri-Strips were placed over the area. Patient was sent to recovery in stable condition. Diagnosis: Bilateral tender inguinal hernias. Procedures: Laparoscopic repair of left and right inguinal hernias with mesh. Disposition: Home. Activity: As tolerated. No heavy lifting. Follow up in my office in 1 week. Call for appointment at [phone]. Keep area dry for 48 hours, then may shower. Keep Steri-Strips intact. Cold compress to bilateral inguinal region for 24 hours. JENIFFER/NAFISA Voice ID: [id number] Report ID: [id number]
--- NOTE | 2023-04-14 18:09 | EKG ---
Test Date: 2023-04-09 Test Time: 15:17:10 Stereo Map Plotter Operator: TEMITOPE MEASUREMENT RESULTS: Intervals: Rate: 65 MN: 142 QRSD: 86 QT: 398 QTc: 413 [place]: P: 61 MN: 142 QRS: -24 T: 27 INTERPRETIVE STATEMENTS: Normal sinus rhythm Nonspecific ST abnormality Abnormal ECG Compared to ECG 06/19/2020 14:38:30 ST (T wave) deviation now present Electronically Signed On 04-14-23 18:05:08 CDT by Michael Camejo
== END 2023-04-12 12:27 | disposition home or self-care (01) ==
LOC: OR 07:08
PROVIDERS: ATTEND Surgery
PROC: 0YUA4JZ Supplement Bilateral Inguinal Region with Synthetic Substitute, Percutaneous Endoscopic Approach (ICD-10-PCS; principal; 2023-04-12 09:00)
DX: K40.20 Bilateral inguinal hernia, without obstruction or gangrene, not specified as recurrent (principal)
CPT/HCPCS: 36415; 71046; 80048; 85025; 93005; J0171; J0690; J1100; J2001; J2405; J2704; J3010; J7120